=== PATIENT | male | born 1930 | race Caucasian/White ===

== ENCOUNTER 2018-08-10 01:10 | Emergency (ER) | payer OTHER ==
[~2018-08-10] VITALS: Ht 177.8 cm; Wt 78.9 kg
[2018-08-10 06:00] VITALS: BP 141/75
== END 2018-08-10 06:03 | disposition home or self-care (01) ==
LOC: ER 01:10
DX: S01.01XA Laceration without foreign body of scalp, initial encounter (principal); S20.211A Contusion of right front wall of thorax, initial encounter; W18.39XA Other fall on same level, initial encounter; Y93.01 Activity, walking, marching and hiking; Y92.89 Other specified places as the place of occurrence of the external cause; Y99.8 Other external cause status

== ENCOUNTER 2018-08-20 15:12 | Emergency (ER) | payer OTHER ==
[~2018-08-20] VITALS: Ht 177.8 cm; Wt 79.4 kg
[2018-08-20] MEDS ORDERED: CELEXA20 MG PO (17:49)
[2018-08-20] MEDS ORDERED: ARICEPT10 MG PO (17:49)
[2018-08-20 17:50] VITALS: BP 118/78
== END 2018-08-20 17:51 | disposition home or self-care (01) ==
LOC: ER 15:12
DX: S01.01XD Laceration without foreign body of scalp, subsequent encounter (principal); W18.39XD Other fall on same level, subsequent encounter

== ENCOUNTER 2020-02-19 13:18 | Emergency (ER) | payer OTHER ==
[~2020-02-19] VITALS: Ht 177.8 cm; Wt 59.0 kg
[~2020-02-19 13:18] MED LIST: ARICEPT10 MG PO; CELEXA20 MG PO
[2020-02-19] MEDS ORDERED: FLUOXETINE HCL40 MG PO (14:14)
[2020-02-19] MEDS ORDERED: AMLODIPINE BESY10 MG PO (14:14)
[2020-02-19] MEDS ORDERED: FINASTERIDE5 MG PO (14:14)
[2020-02-19] MEDS ORDERED: ARIPIPRAZOLE2 MG PO (14:15)
[2020-02-19] MEDS ORDERED: LANTUS SUBQ (14:16)
[2020-02-19] MEDS ORDERED: HYALURONIC ACI1 EACH PO (14:16)
[2020-02-19] MEDS ORDERED: ULTRAM 50MG TAB50 MG PO (16:59)
[2020-02-19 17:29] VITALS: BP 150/60
== END 2020-02-19 17:30 | disposition home or self-care (01) ==
LOC: ER 13:18
DX: S22.31XA Fracture of one rib, right side, initial encounter for closed fracture (principal); E11.9 Type 2 diabetes mellitus without complications; Z79.899 Other long term (current) drug therapy; Z79.4 Long term (current) use of insulin; Z87.891 Personal history of nicotine dependence; W19.XXXA Unspecified fall, initial encounter; Y93.89 Activity, other specified; Y92.002 Bathroom of unspecified non-institutional (private) residence as the place of occurrence of the external cause; Y99.8 Other external cause status

== ENCOUNTER 2020-02-22 22:00 | Inpatient (IN) | payer OTHER ==
[~2020-02-22] VITALS: Ht 177.8 cm; Wt 80.3 kg
--- NOTE | ~2020-02-22 | EMS ---
[place] [address] EMS Patient Care Report Name: JOHN SON Room #: REG Dara#: [id number] Admission: 02/22/20 Attend Phys: Discharge: Date of : 31 Report #: [id number] THIS REPORT FOR: //name// Report Transmitted: 02/22/2020 21:53 EMS Care Summary [place], [place]/[facility] Incident [id number] @ 02/22/2020 21:20 Incident Location [address] [place] [address] Patient JOHN SON Male, 89 Years 1930 Patient Address [address] [place] [address] Patient History Type 2 Diabetes, Patient Allergies No known allergies, Patient Medications Other, Chief Complaint Fall of toilet Disposition Transported No Lights/[place] [facility] Reason Falls Transported To [facility] Narrative Called to the scene for a fall. Upon arrival, P28 on the scene. Pt was AGUILAR sitting on his walker. It was reported he fell of the toilet, hitting his head on the floor. No loss of consciousness reported nor any blood thinners. Pt has a 1 cm abrasion to the right side of his head, bleeding has stopped. His [facility] [address] [place] [address] EMS Patient Care Report Name: JOHN SON Room #: REG Dara#: [id number] Admission: 02/22/20 Attend Phys: Discharge: Date of : 31 Report #: [id number] who is POA wants him transported to [facility] for further eval. Pt moved to the EMS cot and loaded into the ambulance w/o incident. Vitals obtained. 18g IV and D-stick. Vitals repeated. En route: no changes. RR to [facility] ER. Arrived: pt taken to ER #4 and moved to their bed w/o incident. Pt care & report to ER staff. Initial Vitals @21:51P: 84,R: 16,BP: 154/82,Pain: 2/10,GCS: 15,CO: 0,SpO2: 95,Revised Trauma: 12, @21:52P: 79,R: 16,BP: 161/82,Pain: 0/10,GCS: 15,Glucose: 399,CO: 2,SpO2: 95,Revised Trauma: 12, Assessments @21:30MENTAL:Person Oriented,Time Oriented,Place Oriented,Event Oriented,SKIN:HEENT:Head/Face: ABR,LUNG SOUNDS:ABDOMEN:PELVIS//GI:EXTREMITIES:Left Arm: No Abnormalities,Right Arm: No Abnormalities,Left Leg: No Abnormalities,Right Leg: No Abnormalities,PULSE:NEURO:No Abnormalities, Impression Injury of Head Procedures @21:30ALS AssessmentResponse: UnchangedSucceeded@21:53Saline Lock 8cc (18 ga) Site: Forearm-LeftResponse: UnchangedSucceeded Timeline 21:16,Call Received 21:16,Dispatch Notified 21:20,Dispatched 21:20,En Route 21:29,On Scene 21:30,At Patient 21:30,ALS Assessment,Response: UnchangedSucceeded, 21:51,BP: 154/82 M,PULSE: 84,RR: 16 R,SPO2: 95 Ox,ETCO2: ,BG: ,PAIN: 2,GCS: 15, 21:52,BP: 161/82 M,PULSE: 79,RR: 16 R,SPO2: 95 Ox,ETCO2: ,B,PAIN: 0,GCS: 15, 21:53,Depart Scene 21:53,Saline Lock 8cc 18 ga Site: Forearm-Left,Response: UnchangedSucceeded, 21:57,At Destination 22:15,Call Closed Disclaimer v1.1 Copyright 2020 [employer] This EMS Care Summary contains data elements from the applicable legal record (which may be displayed differently). It is designed to provide pertinent [facility] [address] [place] [address] EMS Patient Care Report Name: JOHN SON Room #: REG [facility]#: [id number] Admission: 02/22/20 Attend Phys: Discharge: Date of : 31 Report #: [id number] information for the following purposes: continuity of care, clinical quality, and state data reporting. The complete legal record is available to ED staff and administrators of the receiving hospital in [employer]'s Patient Tracker. All data is provided "as is."
[~2020-02-22 22:00] MED LIST changes: +AMLODIPINE BESY10 MG PO; +ARIPIPRAZOLE2 MG PO; +FINASTERIDE5 MG PO; +FLUOXETINE HCL40 MG PO; +HYALURONIC ACI1 EACH PO; +LANTUS SUBQ; +ULTRAM 50MG TAB50 MG PO
[2020-02-22 22:01] VITALS: BP 147/70
[2020-02-22 23:47] LABS: HEMATOCRIT 40.7 % (42.0-52.0); HEMOGLOBIN 13.6 gm/dL (14.0-18.0); MCHC 33.5 g/dL (28.0-37.0); MCV 95.5 fL (80.0-100.0); PLATELET COUNT 162 thou/uL (150-400); RBC 4.26 mil/uL (4.50-6.00); RDW 12.9 % (10.5-14.5); WBC 6.4 thou/uL (4.0-11.0)
[2020-02-23 00:19] LABS: ANION GAP 10 mmol/L (7-16); BUN 25 mg/dL (7-18); CALCIUM 9.1 mg/dL (8.5-10.1); CHLORIDE 103 mmol/L (98-107); CO2 24 mmol/L (21-32); GLUCOSE 359 mg/dL (74-106); POTASSIUM 4.3 mmol/L (3.5-5.1); SODIUM 137 mmol/L (136-145)
[2020-02-23 00:30] LABS: SGOT 29 U/L (15-37); SGPT 34 U/L (30-65); TOTAL BILIRUBIN 0.4 mg/dL (0.2-1.0); TOTAL PROTEIN 6.1 g/dL (6.4-8.2); TROPONIN-I <0.06 ng/mL (<0.06)
[2020-02-23 01:11] LABS: URINE BILIRUBIN NEGATIVE (Negative); URINE BLOOD NEGATIVE (Negative); URINE CLARITY CLEAR; URINE COLOR YELLOW; URINE GLUCOSE-RANDOM* 3+ (Negative); URINE KETONES TRACE (Negative); URINE LEUKOCYTES-REFLEX NEGATIVE (Negative); URINE NITRITE-REFLEX NEGATIVE (Negative); URINE PROTEIN (DIPSTICK) NEGATIVE (Negative); URINE UROBILINOGEN 0.2 E.U./dl (0.2-1.0)
[2020-02-23 01:36] LABS: PLATELET ESTIMATE NORMAL
[2020-02-23 07:50] VITALS: BP 145/69
--- NOTE | 2020-02-23 08:01 | EKG ---
[facility] [place] [address] [address] ELECTROCARDIOGRAM REPORT Name: JOHN SON Room #: 170-4 ADM IN M.R.#: [id number] Admission: 02/23/20 Attend Phys: Ezequiel Al MD Discharge: Date of : 31 Report #: [id number] THIS REPORT FOR: cc: Wesley Pena MD, John J. MD Santiago, Patrick MD [facility] ~ THIS REPORT FOR: //name// [facility] ED Test Date: 2020-02-22 Test Time: 23:49:41 Pat Name: JOHN SON Department: Room: [facility] Gender: M Emergency Manager: SERA : 1930 Requested By: Ariel Huffman Order Number: [id number] MD: Edilson Woodard Measurements Intervals [place] Rate: 69 P: -1 MT: 160 QRS: -8 QRSD: 96 T: 19 QT: 405 QTc: 434 Interpretive Statements Sinus rhythm Probable left atrial enlargement Inferior infarct, old No previous ECG available for comparison Electronically Signed On 02-23-2020 8:01:12 CDT by Edilson Woodard [email or web address] <ELECTRONICALLY SIGNED> By: Edilson Woodard MD, FACC 02/23/20 0801 [id number] Edilson Woodard MD, [facility] /EPI
[2020-02-23 08:05] VITALS: BP 145/69
[2020-02-23 08:30] VITALS: BP 163/76
--- NOTE | 2020-02-23 12:24 | NUR ---
RD consult received for supplement. Newly admitted today with frequent falls and hyperglycemia (initially over 350). Pt with underlying dementia, poor historian. hx diabetes. A1C has been ordered and pt with insulin orders. Wts from 07/2018 show 175 lb. Admit wt 130 lb reported by pt, inaccurate. Bedscale 170 lb, down 5 lb over undetermined time frame. Attempted visit, pt with staff members being assisted to bathroom. Will start glucerna shakes bid as early nutrition intervention until po intake trends identified. Low nutrition risk at this time.
--- NOTE | 2020-02-23 13:40 | NUR ---
Pt arrived to floor from emergency room per cart at 0805 in stable condition. Admission,hx,assessment and care plan completed.Consult called to rehab as ordered.Pt ambulated in hallways with therapist.Fair endurance noted.Pt here later this afternoon.Updates given.Fall bundle in place.Will continue to monitor.
--- NOTE | 2020-02-23 15:29 | NUR ---
PT ADMITTED RELATED TO FREQUENT FALLS. CM REVIEWED CHART AND SPOKE WITH CARE TEAM. CM ATTEMPTED PC TO PT'S ROOM WITH NO RESPONSE. CM CALLED PT'S SPOUSE. CM VISITED WITH PT'S SPOUSE THIS AFTERNOON. SHE INDICATED THAT SHE AND PT RESIDE IN A HOUSE WITH 2 STEPS TO ENTER AND NONE PT USES INSIDE. SPOUSE INDICATED THAT PT USES A 4WW AND A FWW TO ASSIST WITH MOBILITY. PT'S SPOUSE ASSIST WITH ADLS. PT'S SPOUSE INDICATED THAT THEY HAVE A CAREGIVER TWICE A WEEK FOR 5HRS PER DAY. HER NAME IS GENARO AND THEY PAY HER $20.00 PER HOUR. SPOUSE INDICATED THAT PT HAD GONE TO [facility] 4 YRS AGO AND 3 YRS AGO. PT HAS HAD HOME HEALTH BUT SPOUSE CAN'T RECALL PROVIDER. [facility] HAD BEEN CONSULTED AND ARE ASSESSING FOR POSSIBLE ADMISSION. CM TO FOLLOW INDICATED WITH DC PLANNING.
[2020-02-23 20:30] VITALS: BP 131/58
--- NOTE | 2020-02-23 23:30 | NUR ---
Care assumed of patient at 1915: Patient laying in bed at start of shift. Patient attempting to get out of bed to use the bathroom. Nurse walked with patient with gait belt, walker, mod assist x1. Patient unsteady, poor balance. Patient alert and oriented to person only this shift. Confused, forgetful, agitated, restless. Patient continues to talk about being at a [employer], asking nurse how the dance was. Needed several reminders on current location. Incontinent of bowel and bladder this shift. No s/s of pain or discomfort observed. Staple intact to right side of head. High fall risk precautions in place.
[2020-02-24 05:38] LABS: ABSOLUTE NEUTROPHILS 6.3 thou/uL (1.4-8.2); BASOPHILS 0.4 % (0.0-2.0); EOSINOPHILS 0.4 % (0.0-3.0); HEMATOCRIT 44.1 % (42.0-52.0); HEMOGLOBIN 14.8 gm/dL (14.0-18.0); LYMPHOCYTES 24.2 % (24.0-44.0); MCHC 33.6 g/dL (28.0-37.0); MCV 95.2 fL (80.0-100.0); MONOCYTES 8.9 % (1.0-8.0); PLATELET COUNT 207 thou/uL (150-400); POLYS 66.1 % (36.0-66.0); RBC 4.64 mil/uL (4.50-6.00); RDW 12.7 % (10.5-14.5); WBC 9.5 thou/uL (4.0-11.0)
[2020-02-24 08:01] VITALS: BP 136/76
--- NOTE | 2020-02-24 10:59 | NUR ---
PATIENT WAS IN BED AWAKE WHEN CARE ASSUMED. PATIENT HAS BEEN RESTLESS, CONSTANTLY ATTEMPTING TO CLIMB OVER THE BEDRAIL, REQUIRING CONSTANT REPOSITIONING, AND REDIRECTION. PATIENT IS DELUSIONAL, PARANOID, VERY CONFUSED, STATING CONSTANTLY "PUT ME IN BED" WHILE PATIENT IS LAYING IN BED, "I AM ABOUT TO FALL, WATER IS RUNNING DOWNWARDS". PATIENT ASSISTED WITH BREAKFAST BY STAFF. 3UNIT INSULIN GIVEN PER SLIDING SCALE ORDER. PATIENT TOOK ALL MORNING MEDICATION WHOLE WITH LOTS OF ENCOURAGEMENT. WILL CONTINUE TO REPOSITION, REDIRECT, AND MONITOR FOR SAFETY.
--- NOTE | 2020-02-24 14:20 | NUR ---
PT IS MORE CONFUSED THIS DAY. PT WASN'T ABLE TO WORK WITH HIM TODAY. [facility] HAD INDICATED THAT BASED ON THERAPY NOTES FROM YESTERDAY THEY WOULD LIKELY BE ABLE TO ACCEPT PT IS PT AND SPOUSE WOULD POSSIBLE BE ABLE TO INCREASE THEY PD IF NEEDED. CM SPOKE WITH PT'S SPOUSE ABOUT THIS AND SHE WAS NONCOMMITAL. SHANK BURNISHER TO VISIT WITH HER THIS DAY. CM TO FOLLOW INDICATED WITH DC PLANNING.
[2020-02-24 15:55] VITALS: BP 145/74
[2020-02-24 19:07] VITALS: BP 121/74
--- NOTE | 2020-02-25 04:38 | NUR ---
ASSUMED PT CARE AROUND 1930. AGITATED AND DOES NOT FOLLOW ANY DIRECTIONS. SCREAMING AND SWINGING ARMS AND LEGS ALL OVER IN BED. DANGER FOR ASPIRATION NOTED FROM BEHAVIOR. CALLED ETHAN THOMPSON AND RECEIVED AN ORDER FOR ATIVAN. PT RESPONDED VERY WELL TO MED AND AGITATION DECREASED OVER NIGHT. RESTING IN BED. WAS ABLE TO TOLERATED CRUSHED PO MEDS. NO S/S ACUTE DISTRESS NOTED OR REPORTED AT THIS TIME. WILL CONT TO MONITOR FOR ANY CHANGES IN CONDITION.
[2020-02-25 06:12] LABS: HEMOGLOBIN 14.4 gm/dL (14.0-18.0); MCH 32.1 pg (26.0-34.0); MCHC 33.5 g/dL (28.0-37.0); MCV 95.8 fL (80.0-100.0); RBC 4.49 mil/uL (4.50-6.00); RDW 13.2 % (10.5-14.5); WBC 9.6 thou/uL (4.0-11.0)
[2020-02-25 06:33] LABS: CREATININE 0.9 mg/dL (0.7-1.3); POTASSIUM 3.8 mmol/L (3.5-5.1)
[2020-02-25 08:23] VITALS: BP 129/64
[2020-02-25 15:16] VITALS: BP 129/64
--- NOTE | 2020-02-25 16:22 | NUR ---
PT WAS SEEN BY DR. SKAGGS. PT WASN'T ABLE TO WORK WITH HIM THIS DAY. 5N FOLLOWING CM TO FOLLOW WITH CARE TEAM TO DETERMINE DC PLANNING. PT TO HAVE CHEST CT THIS DAY.
--- NOTE | 2020-02-25 16:37 | NUR ---
RESULTS OF CT OF CHEST VIEWED AT 1410. DR FAROOQ CONTACTED AT 1411. DR FAROOQ ALREADY AWARE OF PE. ORDER FOR ELIQUIS ENTERED BY DR FAROOQ IN THE AFTERNOON. WILL CONTINUE TO MONITOR.
[2020-02-25 19:35] VITALS: BP 119/68
--- NOTE | 2020-02-26 04:21 | NUR ---
ASSUMED PT CARE AROUND 1930. AXOX2. VERBAL AND ABLE TO FOLLOW COMMANDS TONIGHT. VSS. NO S/S ACUTE DISTRESS NOTED OR REPORTED AT THIS TIME. WILL CONT TO MONITOR FOR ANY CHANGES IN CONDITION.
[2020-02-26 06:11] LABS: HEMATOCRIT 42.3 % (42.0-52.0); HEMOGLOBIN 14.1 gm/dL (14.0-18.0); MCH 32.1 pg (26.0-34.0); MCHC 33.3 g/dL (28.0-37.0); MCV 96.4 fL (80.0-100.0); RBC 4.39 mil/uL (4.50-6.00); RDW 13.1 % (10.5-14.5); WBC 8.2 thou/uL (4.0-11.0)
[2020-02-26 06:33] LABS: CALCIUM 9.1 mg/dL (8.5-10.1); CREATININE 0.8 mg/dL (0.7-1.3); MAGNESIUM 2.3 mg/dL (1.8-2.4); POTASSIUM 3.6 mmol/L (3.5-5.1)
--- NOTE | 2020-02-26 07:29 | NUR ---
PATIENT HAD A FSBS OF 65 THIS AM. JUICE, CRACKERS AND APPLESAUCE GIVEN. 15 MINUTES LATER IT IS 87. PATIENT WILL BE SUPERVISED AND FED FOR BREAKFAST THIS AM.
--- NOTE | 2020-02-26 10:11 | 2DMMODE ---
[facility] [place] [address] [place] [address] 2 D/M-MODE ECHOCARDIOGRAM Name: JOHN SON Room #: 462-P ADM IN M.R.#: [id number] Admission: 02/23/20 Attend Phys: Winston Banegas MD Discharge: Date of : 31 Report #: [id number] THIS REPORT FOR: cc: Wesley Pena MD, John J. MD Lammoglia, Francisco J. MD ~ APPROVED REPORT Study performed: 02/26/2020 08:55:43 EXAM: Comprehensive 2D, Doppler, and color-flow Echocardiogram Patient Location: Bedside Room #: 462 Status: routine BSA: 1.98 HR: 65 bpm BP: 119/68 mmHg Rhythm: Sinus arrhythmia Other Information Study Quality: Adequate Indications Pulmonary Embolism 2D Dimensions RVDd: 37.82 mm IVSd: 9.63 (7-11mm) LVOT Diam: 22.90 (18-24mm) LVDd: 43.37 mm PWd: 12.27 (7-11mm) LVDs: 31.76 (25-40mm) Aortic Root: 34.90 mm Volumes Left Atrial Volume (Systole) Single Plane 4CH: 46.49 mL Single Plane 2CH: 55.64 mL LA ESV Index: 29.00 mL/m2 Aortic Valve AoV Peak Tom.: 1.41 m/s AO Peak Gr.: 7.99 mmHg LVOT Max P.55 mmHg LVOT Max V: 0.94 m/s ANN Vmax: 2.[address] [facility] [place] [address] [place] [address] 2 D/M-MODE ECHOCARDIOGRAM Name: JOHN SON Room #: 462-P ADM IN M.R.#: [id number] Admission: 02/23/20 Attend Phys: Winston Banegas MD Discharge: Date of : 31 Report #: [id number] Mitral Valve E/A Ratio: 0.5 MV Decel. Time: 310.84 ms MV E Max Tom.: 0.63 m/s MV A Tom.: 1.18 m/s MV PHT: 90.14 ms IVRT: 143.02 ms Pulmonary Valve PV Peak Tom.: 0.97 m/s PV Peak Gr.: 3.79 mmHg Tricuspid Valve TR Peak Tom.: 2.80 m/s TR Peak Gr.: 31.00 mmHg Left Ventricle The left ventricle is normal size. There is normal LV segmental wall motion. There is normal left ventricular wall thickness. Left ventricular systolic function is normal. LVEF is 55-60%. Mild diastolic dysfunction is present (impaired relaxation pattern). Right Ventricle The right ventricle is normal size. The right ventricular systolic function is normal. Atria The left atrium size is normal. The right atrium size is normal. Aortic Valve The aortic valve is not well visualized. Leaflets are mildly calcified. Mild aortic regurgitation. There is no aortic valvular stenosis. Mitral Valve Mitral valve leaflets are mildly thickened. Moderate mitral annular calcification. Mild mitral regurgitation. No evidence of mitral valve stenosis. Tricuspid Valve The tricuspid valve is normal in structure. Trace tricuspid regurgitation. Estimated PAP is 31mmHg plus the right atrial pressure. Pulmonic Valve [facility] [address] [place] [address] 2 D/M-MODE ECHOCARDIOGRAM Name: JOHN SON Room #: 462-P [facility] IN [facility]#: [id number] Admission: 02/23/20 Attend Phys: Winston Banegas MD Discharge: Date of : 31 Report #: [id number] Pulmonic valve is not well visualized. Trace pulmonic regurgitation. Great Vessels The aortic root is normal in size. The ascending aorta is normal in size. IVC is not well visualized. Pericardium There is no pericardial effusion. <Conclusion> The left ventricle is normal size. LVEF is 55-60%. The aortic valve is not well visualized. Leaflets are mildly calcified. Mild aortic regurgitation. Mitral valve leaflets are mildly thickened. Moderate mitral annular calcification. Mild mitral regurgitation. The tricuspid valve is normal in structure. Trace tricuspid regurgitation. Estimated PAP is 31mmHg plus the right atrial pressure. Pulmonic valve is not well visualized. Trace pulmonic regurgitation. There is no pericardial effusion. <ELECTRONICALLY SIGNED> By: Presley Stratton MD 02/26/201010 10 10 Presley Stratton MD /INF
--- NOTE | 2020-02-26 11:29 | NUR ---
FAXED REFERRAL TO [facility] SPOKE WITH DANG IN ADM SHE RECEIVED REFERRAL AND WILL REVIEW.
--- NOTE | 2020-02-26 13:39 | NUR ---
CARE TEAM INDCATED THAT PT WAS FOUND TO HAVE A PE. PT IS TO HAVE LE ULTRASOUND THIS DAY. THERAPY WORKED WITH PT AND HAVE INDICATED THAT SKILLED REHAB WOULD BE MORE APPROPRIATE IF PT IS ANTICIPATED TO BE MEDICALLY STABLE FOR DISCHARGE IN THE NEAR FUTURE. CM MET WITH PT AND SPOUSE AT BEDSIDE THIS DAY AND INDICATED THE ABOVE. SPOUSE IS AGREEABLE WITH REFERRAL BEING SENT TO [facility] PT HAS BEEN THERE IN THE PAST. REFERRAL SENT. CM CONFIRMED RECIEPT AND DANG IN ADMISSIONS AND DON ARE REVIEWING FOR POSSIBLE ADMISSION.
[2020-02-26 15:26] VITALS: BP 143/74
[2020-02-26 19:27] VITALS: BP 130/74
--- NOTE | 2020-02-26 19:38 | NUR ---
PATIENT IS A&OX2, [place] AND INCONTINENT OF BOWEL IN BLADDER. PATIENT IS ON BEDREST D/T WEAKNESS. PATIENT DENIES PAIN BUT IS OBSERVED GRIMACING AND SPLINTING WHEN REPOSITIONED OR MOVED. NEW ORDERS FOR APAXIBAN AND PATIENT TOLERATED WELL. APPETITE IS POOR. ST EVALUATED PATIENT AND INDICATED A NEED FOR SWALLOWING PRECAUTIONS. SPOUSE AT BEDSIDE. PATIENT ALSO WORKED WITH OT. FLUIDS INFUSING ON 100MLS/HRS W NO ISSUES. RESTING IN BED MOST OF THE DAY AND DENIES NEEDS. REPORT ENDORCED TO NOC. RN.
[2020-02-26 23:09] VITALS: BP 130/74
--- NOTE | 2020-02-27 02:57 | NUR ---
Assumed care of patient this pm shift. Patient calm and cooperative. Patient is alert and oriented x2. Patient takes medications crushed in pudding. Patient is BAD R[place] BAND, remains incontinent of bowel and bladder. Stephenson catheter put on at the begining of shift and removed around 2 am due to leaking. Catheter left of due to mild swelling and reddness around the tip of the penis. Patient is on falls precautions. We will continue to monitor per hospital policy.
[2020-02-27 05:57] LABS: HEMATOCRIT 42.6 % (42.0-52.0); HEMOGLOBIN 14.4 gm/dL (14.0-18.0); MCH 32.6 pg (26.0-34.0); MCHC 33.9 g/dL (28.0-37.0); MCV 96.4 fL (80.0-100.0); RBC 4.42 mil/uL (4.50-6.00); WBC 8.1 thou/uL (4.0-11.0)
[2020-02-27 06:14] LABS: CALCIUM 8.4 mg/dL (8.5-10.1); CREATININE 0.8 mg/dL (0.7-1.3)
[2020-02-27 09:13] VITALS: BP 140/74
[2020-02-27 20:02] VITALS: BP 140/59
--- NOTE | 2020-02-27 20:15 | NUR ---
PROGRESS W PATIENT ON THIS DAY. ASSUMED CARE AT 0800. ASSESSMENT CHARTED, MEDS ADMINISTERED IN APPLESAUCE W NO ISSUES. ON THIS DAY PATIENT C/O KNEE PAIN. PRN ANALGESIC ADMINISTERED. STILL NEEDING ENCOURAGEMENT WITH FEEDING. FLUIDS NOW RUNNING ON L FA W NO ISSUES. INCONT OF B&B; REPOSITONED EVERY [address] ENDORSED TO OLVIN JOEL.
--- NOTE | 2020-02-28 04:34 | NUR ---
Pt. rested quietly at intervals during the night when checked on during frequent rounds. He offers no c/o pain. Incontinent of urine and en care given. Bed alarm is on.
[2020-02-28 05:54] LABS: HEMATOCRIT 41.5 % (42.0-52.0); HEMOGLOBIN 14.1 gm/dL (14.0-18.0); MCH 32.2 pg (26.0-34.0); MCHC 33.9 g/dL (28.0-37.0); MCV 94.9 fL (80.0-100.0); RBC 4.37 mil/uL (4.50-6.00); RDW 12.9 % (10.5-14.5); WBC 7.2 thou/uL (4.0-11.0)
[2020-02-28 05:56] LABS: CALCIUM 8.7 mg/dL (8.5-10.1); CREATININE 0.8 mg/dL (0.7-1.3); MAGNESIUM 1.9 mg/dL (1.8-2.4)
[2020-02-28 08:44] VITALS: BP 144/72
[2020-02-28 15:34] VITALS: BP 182/95
[2020-02-28 19:40] VITALS: BP 166/77
--- NOTE | 2020-02-29 05:47 | NUR ---
Pt. rested quietly at intervals during the night when checked on during frequent rounds. He offers no c/o pain or discomfort. Incontinent of urine and en care given. Bed alarm is on.
[2020-02-29 08:32] VITALS: BP 169/81
--- NOTE | 2020-02-29 11:31 | NUR ---
Received awake on bed. Due medications given as prescribed, crushed and mixed with apple sauce; swallowing precaution observed. On telemetry; no complains and signs of chest pain, crushing sensation and heaviness. On room air. Vital signs stable, with BP elevation noted, scheduled BP meds given- rechecked- WNL. Assisted in ADLs. On carb controlled diet- tolerating well; no nausea, no vomiting and no abdominal pain noted; assisted and encouraged in eating and drinking. Incontinent of bowel and bladder, checked frequently and changed as needed. With D51/2NS at 100cc/hr, infusing well at L FA, wrapped in coban-checked: intact. Falls bundle in place. Pt seen and examined by Dr Turner this AM, with consult to Dr Charles- US called in consult; a/w rounds. Dicharge orders made as well- CM informed; covid swab needed- swab done and specimen sent. To continue monitoring patient.
[2020-02-29 11:36] VITALS: BP 141/67
--- NOTE | 2020-02-29 12:17 | NUR ---
PT'S PO JOSE MANUEL HAD BEEN DC'D CLINICAL UPDATED SENT TO [facility] FOR REVIEW FOR POSSIBLE ADMISSION THIS AM. COVIDE TEST ORDERED AND COLLECTED. CM TO FOLLOW INDICATED WITH DC PLANNING.
[2020-02-29 14:20] VITALS: BP 152/80
--- NOTE | 2020-02-29 15:58 | NUR ---
5[facility] CONSULT RECEIVED. Pt WITH CONFUSION AND LETHARGY OVER THE PAST FEW DAYS, RESULTING IN THERAPIES NOT ABLE TO WORK WITH Pt. DISCUSSED WITH CASE MGMT. Pt IS LOWER LEVEL REGARDING FUNCTIONAL MOBLITY AT THIS TIME AND PLAN IS TO PURSUE SNF Pt HAS ALREADY BEEN ACCEPTED TO A SNF. THANK YOU FOR THIS REFERRAL.
--- NOTE | 2020-02-29 17:19 | NUR ---
FAXED CLINICAL UPDATE TO [facility] RECEIVED CONFIRMATION AND LEFT MSG WITH DANG IN ADM.
[2020-02-29 19:40] VITALS: BP 161/74
--- NOTE | 2020-03-01 05:19 | NUR ---
ASSUMED CARE OF PT AT 1900HRS. PT AOX2 AND NEEDS MUST BE ANTICIPATED. FALL PRECAUTION IN PLACE. PT DENIES PAIN, NAUSEA OR SOA. PT WAS ABLE TO GET COMFORTABLE AND SLEEP PART OF THE SHIFT. VSS AND NO S/S OF ACUTE DISTRESS. WILL CONTINUE TO MONITOR.
--- NOTE | 2020-03-01 07:59 | HC ---
[facility] [place] [address] CONSULTATION Name: JOHN SON Room #: 462-P ADM IN Gloria.Bernie.#: [id number] Admission: 02/23/20 Attend Phys: Winston Banegas MD Discharge: Date of : 31 Report #: [id number] THIS REPORT FOR: cc: Wesley Pena MD, John J. MD Al-Mubaslat, Ahmad MD ~ DATE OF SERVICE: 02/29/2020 ENDOCRINE CONSULTATION NOTE CONSULTING PHYSICIAN: Dr. Turner. REASON FOR CONSULTATION: Uncontrolled type 2 diabetes. HISTORY OF PRESENT ILLNESS: This is an 89-year-old male patient whose medical background is significant for type 2 diabetes mellitus, hypertension, hyperlipidemia. The patient presented on the day of admission following a fall, head trauma and scalp laceration. This seems to have occurred in the context of progressive weakness and fatigue over the past few weeks. On the issue of type 2 diabetes mellitus, the patient indicates that he has had type 2 diabetes mellitus for several years. He treats his diabetes with Lantus insulin monotherapy and was not sure if it was 10 or 12 units at night that he takes. He notes that he checks his blood glucose values consistently and that they are mostly between 100 and 150 mg/dL. He has not appreciated difficulties with hypoglycemia. The patient is not aware of difficulties pertaining to diabetic retinopathy, nephropathy, or neuropathy. REVIEW OF SYSTEMS: CONSTITUTIONAL: Fatigue, tiredness, but no fever, chills or body weight changes. HEENT: Negative for sore throat, sinus pain or ear drainage. PULMONARY: Occasional shortness of breath and cough, but no hemoptysis. CARDIAC: Negative for chest pain, palpitations, but potential syncope. GASTROINTESTINAL: Abdominal discomfort, nausea, but no vomiting. MUSCULOSKELETAL: Joint aches, muscle aches. Gait instability. NEUROLOGY: Negative for seizure activity, frequent severe headaches. Otherwise, review of systems is noncontributory unless mentioned in HPI. PAST MEDICAL HISTORY: Noted for: 1. Type 2 diabetes mellitus. 2. Hypertension. 3. Generalized weakness and frequent falls. 4. Depression. [facility] [address] [place] [address] CONSULTATION Name: JOHN SON Room #: 462-P [facility] IN ..#: [id number] Admission: 02/23/20 Attend Phys: Winston Banegas MD Discharge: Date of : 31 Report #: [id number] 5. Dementia. 6. BPH. OUTPATIENT MEDICATIONS: Include Aricept 10 mg daily, fluoxetine 40 mg daily, amlodipine 10 mg daily, Lantus insulin 15 units at bedtime, Celexa 20 mg at bedtime, finasteride 5 mg daily. ALLERGIES: No known drug allergies. FAMILY HISTORY: Noncontributory. SOCIAL HISTORY: The patient lives with his . He denies active use of tobacco, alcohol or illicit drugs. PHYSICAL EXAMINATION: GENERAL: Pleasant male patient who is not in apparent pain or distress. VITAL SIGNS: Blood pressure is 169/81 mmHg, heart rate is 72 beats per minute, respirations 18 per minute, temperature 36.8 degrees Celsius. CONSTITUTIONAL: The patient is sitting upright in bed, appears relatively comfortable, not in apparent distress. HEENT: Anicteric sclerae. Intact extraocular motions. NECK: Supple, without JVD or thyromegaly. CHEST: Noted for moderate entry bilaterally with scattered rales. No wheeze or crackles. HEART: Regular rate and rhythm without murmurs or gallops. ABDOMEN: Soft, lax. No guarding. Active bowel sounds. EXTREMITIES: Lower extremity exam is noted for trace ankle edema. No skin breaks or ulcerations. Pedal pulses are faint. NEUROLOGIC: Awake, alert and oriented to time, place and person. The remainder of his examination is largely nonfocal other than for generalized mild weakness. PSYCHIATRIC: Pleasant, flat mood and affect, interactive, mostly normal thought process. LABORATORY RESULTS: I have reviewed the patient's lab results at length. His blood glucose over the past several days has demonstrated a pattern of tightly controlled fasting blood glucose values consistently under 90 mg/dL and occasionally at a low of 65 mg/dL with consistently elevated postprandial readings around 250-300 mg/dL. Sodium 141, potassium 4.0, chloride 107, CO2 of 25, anion gap 9, BUN 15, creatinine 0.8, glucose 109. AST 29, total bilirubin 0.4, calcium 8.7, magnesium 1.9, alkaline phosphatase 141, ALT 34, total protein 6.1, albumin 3.0, EGFR 91. Troponin negative. White blood count 7.2, hemoglobin 14.1, hematocrit 41.5, platelets 217. Hemoglobin A1c is 10%. [address] [address] CONSULTATION Name: HUYJOHN Room #: 462-P ADM IN M.R.#: [id number] Admission: 02/23/20 Attend Phys: Winston Banegas MD Discharge: Date of : 31 Report #: [id number] ASSESSMENT AND PLAN: 1. Type 2 diabetes mellitus. Uncontrolled, as per the documented blood glucose values during this hospital stay as well as by his hemoglobin A1c measurement of 10%. The patient was counseled at length about the importance of achieving and maintaining adequate glycemic control to avoid diabetic complications, which he seems to understand well. His pattern is consistent with excessive fasting glucose control, but with postprandial hyperglycemia. His kidney function studies are virtually within normal limits, are permissible for the use of low dose metformin therapy and potentially full dose eventually. That said, I will start metformin 500 mg b.i.d., Tradjenta 5 mg daily while dropping her Lantus insulin to 10 units at bedtime. I will maintain Humalog supplemental scale support at low intensity and modified to where he would receive supplements only if his blood glucose exceeds 200 mg/dL. Blood glucose monitoring will continue a.c. and at bedtime and further therapeutic adjustments will be made accordingly. 2. Hypertension. The patient's level of blood pressure control is marginal. Further therapeutic adjustments are as per the primary Hospital Medicine Team. I certainly appreciate this consultation by Dr. Turner. <ELECTRONICALLY SIGNED> By: Troy Gamboa MD 03/01/20 0759 1104 1828 Troy Gamboa MD /nt
[2020-03-01] MEDS ORDERED: GLUCOPHAGE500 MG PO (10:26)
[2020-03-01] MEDS ORDERED: ELIQUIS5 MG PO (10:26)
[2020-03-01] MEDS ORDERED: TRADJENTA5 MG PO (10:27)
[2020-03-01] MEDS ORDERED: LANTUS SUBQ (10:27)
--- NOTE | 2020-03-01 10:45 | NUR ---
patient is alert and resting.his meds were administered to him.meds were crushed and mixed in apple sauce .He is on room air and viatl signs are within normal range.
[2020-03-01 10:51] VITALS: BP 116/74
--- NOTE | 2020-03-01 11:54 | NUR ---
I have reviewed the student documentation.
--- NOTE | 2020-03-01 12:36 | NUR ---
PT DISCHARGING TODAY TO [facility] FAXED DC ORDERS/SUMMAARY TO FACILITY SPOKE WITH DANG IN ADM SHE RECEIVED ORDERS AND ARRANGED TRANSPORT BY [facility] FOR 1400 TODAY. NOTIFIED PT'S (ANALI) OF DC AND TIME OF TRANSPORT. UNIT NOTIFIED AND CHART COPY PER US RN TO CALL REPORT TO [phone].
--- NOTE | 2020-03-01 14:45 | NUR ---
PT HAD BEEN ACCEPTED FOR ADMISSION AT [facility]. CM NOTIFIED PT AND SPOUSE THEY ARE AWARE AND AGREEABLE. CHART COPY ORDERED. ORDERS FAXED. [facility] TRANSPORT ARRANGED FOR 1400. NO OTHER CM INTERVENTION INDICATED. CASE CLOSED.
--- NOTE | 2020-03-01 15:47 | NUR ---
ASSUMED PT CARE THIS AM. PT VSS, A&OX2. PT COMPLAINED OF NO PAIN. PT REMAINED IN BED, DID NOT WANT TO TURN.PT INCONTINENT, CHANGED TWICE. TOOK MEDS WELL CRUSHED IN APPLESAUCE. TOOK THICKENED LIQUIDS WELL WITHOUT COMPLAINT. PT NSR ON TELE. PT DISCHARGED AT 1400 TO [facility].
== END 2020-03-01 14:30 | DRG 299 ==
LOC: ER 22:00 → 4W 02-23 01:15 → EROBS 02-23 01:15 → 4W 02-23 08:04
PROVIDERS: Emergency Medicine; Internal Medicine; Nurse Practitioner Family; ADMIT Internal Medicine; ATTEND Internal Medicine
PROC: 0HQ0XZZ Repair Scalp Skin, External Approach (ICD-10-PCS; principal; 2020-02-23)
DX: I82.433 Acute embolism and thrombosis of popliteal vein, bilateral (principal); I26.99 Other pulmonary embolism without acute cor pulmonale; G92 Toxic encephalopathy; J84.9 Interstitial pulmonary disease, unspecified; R44.3 Hallucinations, unspecified; F03.90 Unspecified dementia, unspecified severity, without behavioral disturbance, psychotic disturbance, mood disturbance, and anxiety; S01.01XA Laceration without foreign body of scalp, initial encounter; E86.0 Dehydration; R07.81 Pleurodynia; I10 Essential (primary) hypertension; E78.5 Hyperlipidemia, unspecified; F32.9 Major depressive disorder, single episode, unspecified; R13.10 Dysphagia, unspecified; W19.XXXA Unspecified fall, initial encounter; N40.0 Benign prostatic hyperplasia without lower urinary tract symptoms; Z20.828 Contact with and (suspected) exposure to other viral communicable diseases; Z87.891 Personal history of nicotine dependence; Z79.4 Long term (current) use of insulin; Z91.81 History of falling; Y93.89 Activity, other specified; Z79.899 Other long term (current) drug therapy; Y92.89 Other specified places as the place of occurrence of the external cause; Y99.8 Other external cause status; Z23 Encounter for immunization; E11.65 Type 2 diabetes mellitus with hyperglycemia
CPT/HCPCS: 10040; 10045